=== PATIENT | female | born 1980 ===

== ENCOUNTER 2018-02-04 14:50 | Emergency (ER) | payer SELFPAY ==
[2018-02-04 14:50] VITALS: BMI 23.4
[2018-02-04 15:17] VITALS: BP 97/59; PULSE 89; RESP 18; TEMP 98.7; O2SAT 100
--- NOTE | 2018-02-04 15:24 | ED PDOC ---
HPI: General Adult Time Seen by Provider: 02/04/18 15:14 Chief Complaint (Nursing): Abnormal Labs Chief Complaint (Provider): Labs History Per: Patient Additional Complaint(s): Pt received a letter yesterday in the mail to return to ED for abnormal test results. Patient denies any symptoms at this time. Pt was given bactrim for UTI last week and Micro resulted and Bactrim was not listed. Pt reprots feeling improved, slight pain transiently. no fever or chills Past Medical History Reviewed: Nursing Documentation, Vital Signs Vital Signs: Last Vital Signs Temp 98.7 F 02/04/18 15:08 Pulse 89 02/04/18 15:08 Resp 18 02/04/18 15:08 BP 97/59 L 02/04/18 15:08 Pulse Ox 100 02/04/18 15:24 - Medical History PMH: No Chronic Diseases - Surgical History Surgical History: - Family History Family History: States: Unknown Family Hx - Living Arrangements Living Arrangements: With Family - Immunization History Hx Tetanus Toxoid Vaccination: No Hx Influenza Vaccination: No Hx Pneumococcal Vaccination: No - Home Medications Home Medications: Ambulatory Orders Medication Instructions Recorded Fluconazole [Diflucan] 150 mg PO DAILY #1 tab 04/13/17 Miconazole [Miconazole 7] 100 mg VG HS #7 sup 04/13/17 Phenazopyridine HCl [Pyridium] 100 mg PO TID #6 tablet 04/13/17 Ibuprofen [Motrin] 600 mg PO Q6 PRN #20 tab 01/15/18 Nitrofurantoin Macrocrystals 100 mg PO BID #14 cap 01/15/18 [Macrobid] Naproxen [Naprosyn] 500 mg PO Q12H #20 tab 01/26/18 Sulfamethoxazole/Trimethoprim 1 tab PO BID #20 tab 01/26/18 [Bactrim DS 800 mg-160 mg] Ciprofloxacin [Cipro] 500 mg PO BID #6 tab 02/04/18 - Allergies Allergies/Adverse Reactions: Allergies Allergy/AdvReac Type Severity Reaction Status Date / Time seasonal Allergy Mild RASH Uncoded 02/04/18 15:08 Review of Systems ROS Statement: Except As Marked, All Systems Reviewed And Found Negative Physical Exam - Reviewed Nursing Documentation Reviewed: Yes Vital Signs Reviewed: Yes - Physical Exam Appears: Positive for: Well, Non-toxic, No Acute Distress Head Exam: Positive for: ATRAUMATIC, NORMAL INSPECTION, NORMOCEPHALIC Skin: Positive for: Normal Color, Warm, DRY Eye Exam: Positive for: EOMI, Normal appearance, PERRL ENT: Positive for: Normal ENT Inspection Neck: Positive for: Normal, Painless ROM Cardiovascular/Chest: Positive for: Regular Rate, Rhythm Respiratory: Positive for: CNT, Normal Breath Sounds Gastrointestinal/Abdominal: Positive for: Normal Exam, Soft Back: Positive for: Normal Inspection Extremity: Positive for: Normal ROM Neurologic/Psych: Positive for: Alert, Oriented - ECG O2 Sat by Pulse Oximetry: 100 Medical Decision Making Medical Decision Making: Pt given RX for Cipro Disposition - Clinical Impression Clinical Impression: UTI (urinary tract infection) - Patient ED Disposition Is Patient to be Admitted: No - Disposition Disposition: Routine/Home Disposition Time: 15:36 Condition: STABLE Prescriptions: Ciprofloxacin [Cipro] 500 mg PO BID #6 tab Instructions: Urinary Tract Infection, Adult (DC) Forms: [employer] (Maltese)
== END 2018-02-04 15:52 | disposition home or self-care (01) ==
LOC: H.ER 14:50
DX: N39.0 Urinary tract infection, site not specified (principal)

== ENCOUNTER 2018-02-20 12:58 | Emergency (ER) | payer SELFPAY ==
[2018-02-20 12:59] VITALS: BMI 23.4
[2018-02-20 13:13] VITALS: PULSE 75
[2018-02-20] MEDS ORDERED: Piperacillin/Tazobact 3.375 GM in Sodium Chloride 0.9% 100 ML IVPB STA (13:31)
[2018-02-20 14:23] LABS: VENOUS BLOOD GAS BASE EXCESS 1.7 mmol/L (0.0-2.0); VENOUS BLOOD GAS PCO2 58 mmHg (40-60); VENOUS BLOOD GAS PO2 23 mm/Hg (30-55); VENOUS BLOOD PH 7.31 (7.32-7.43)
[2018-02-20 14:28] LABS: BASO % 0.6 % (0.0-2.0); EOS # 0.2 K/uL (0.0-0.7); EOS % 3.2 % (0.0-4.0); HEMOGLOBIN 12.1 g/dL (12.0-16.0); LYMPH # 2.7 K/uL (1.0-4.3); LYMPH % 41.5 % (20.0-40.0); MEAN CELL VOLUME 90.7 fl (81.0-99.0); MEAN CORPUSCULAR HEMOGLOBIN 30.8 pg (27.0-31.0); MEAN CORPUSCULAR HGB CONC 33.9 g/dL (33.0-37.0); MEAN PLATELET VOLUME 8.2 fl (7.2-11.7); MONO # 0.4 K/uL (0.0-0.8); MONO % 6.2 % (0.0-10.0); NEUT # 3.2 K/uL (1.8-7.0); NEUT % 48.5 % (50.0-75.0); NRBC % 0.1 % (0.0-0.0); RBC 3.93 Mil/uL (3.80-5.20); RED CELL DISTRIBUTION WIDTH 13.1 % (11.5-14.5); WHITE BLOOD COUNT 6.6 K/uL (4.8-10.8)
[2018-02-20 14:41] LABS: ALB/GLOB RATIO 1.2 (1.0-2.1); ALBUMIN 4.2 g/dL (3.5-5.0); ALT/SGPT 30 U/L (9-52); AST/SGOT 40 U/L (14-36); BLOOD UREA NITROGEN 14 mg/dl (7-17); CALCIUM 9.4 mg/dL (8.4-10.2); GFR NON-AFRICAN AMERICAN > 60
[2018-02-20] MEDS ORDERED: Piperacillin/Tazobact 3.375 gm Inj IVPB ONE (14:42)
[2018-02-20 14:44] LABS: SQUAMOUS EPITHIAL 1 /hpf (0-5); URINE BACTERIA RARE (<OCC); URINE BILIRUBIN NEGATIVE (NEGATIVE); URINE BLOOD MODERATE (NEGATIVE); URINE CLARITY CLEAR (Clear); URINE COLOR STRAW (YELLOW); URINE GLUCOSE (UA) NEG (Normal); URINE LEUKOCYTE ESTERASE NEG Leu/uL (Negative); URINE PROTEIN NEGATIVE (NEGATIVE); URINE UROBILINOGEN 0.2-1.0 mg/dL (0.2-1.0)
[2018-02-20] MEDS ORDERED: Sodium Chloride 0.9% 1,000 ML IV SCH (15:45)
--- NOTE | 2018-02-20 15:51 | ED PDOC ---
Addendum entered and electronically signed by German Maynard PA 02/22/18 10:57: Addendum Addendum: 02/22/18 10:55 As per urine culture no oral abx can be given to treat pt's UTI. Called but no answer. Voicemail left. 2nd attempt to be made. Original Note: HPI: Female Pain Time Seen by Provider: 02/20/18 13:12 Chief Complaint (Nursing): Female Genitourinary Chief Complaint (Provider): dysuria History Per: Patient (37 y/o female with ESBL positive uti here after completing augmentin x 7 days. Notes persistent dysuria after completion of antibiotics. Denies any fevers/chils.) Past Medical History Reviewed: Historical Data, Nursing Documentation, Vital Signs Vital Signs: Last Vital Signs Temp 98.7 F 02/20/18 13:08 Pulse 75 02/20/18 13:08 Resp 16 02/20/18 13:08 BP 108/64 02/20/18 13:08 Pulse Ox 99 02/20/18 13:08 - Surgical History Surgical History: - Family History Family History: States: Unknown Family Hx - Immunization History Hx Tetanus Toxoid Vaccination: No Hx Influenza Vaccination: No Hx Pneumococcal Vaccination: No - Home Medications Home Medications: Ambulatory Orders Medication Instructions Recorded Ascorbic Acid 500 mg PO DAILY #14 tablet 02/20/18 Cranberry 2 cap PO TID 02/20/18 Famotidine [Pepcid] 20 mg PO BID PRN #10 tab 02/20/18 Multivitamin/Iron/Folic Acid 1 tab PO DAILY 02/20/18 [Centrum Complete Multivit Tab] [place]-3 Fatty Acids [[place]-3] 1 cap PO DAILY 02/20/18 Phenazopyridine HCl [Pyridium] 200 mg PO BID PRN #6 tablet 02/20/18 Vitamin E [Vitamin E 400 Units Cap] 1 cap PO DAILY 02/20/18 - Allergies Allergies/Adverse Reactions: Allergies Allergy/AdvReac Type Severity Reaction Status Date / Time seasonal Allergy Mild RASH Uncoded 02/20/18 13:08 Review of Systems ROS Statement: Except As Marked, All Systems Reviewed And Found Negative Physical Exam - Reviewed Nursing Documentation Reviewed: Yes Vital Signs Reviewed: Yes - Physical Exam Appears: Positive for: Well, Non-toxic, No Acute Distress Head Exam: Positive for: ATRAUMATIC, NORMAL INSPECTION, NORMOCEPHALIC Skin: Positive for: Normal Color, Warm, DRY Eye Exam: Positive for: EOMI, Normal appearance, PERRL ENT: Positive for: Normal ENT Inspection Neck: Positive for: Normal, Painless ROM Cardiovascular/Chest: Positive for: Regular Rate, Rhythm Respiratory: Positive for: CNT, Normal Breath Sounds Gastrointestinal/Abdominal: Positive for: Normal Exam, Soft Back: Positive for: Normal Inspection Extremity: Positive for: Normal ROM Neurologic/Psych: Positive for: Alert, Oriented - Laboratory Results Result Diagrams: 02/20/18 14:20 02/20/18 14:20 Urine POC: Negative Urine dip results: Negative for: Leukocyte Esterase, Blood, Nitrate, Ketones, Glucose, Bilirubin, Protein - ECG O2 Sat by Pulse Oximetry: 99 - Progress ED Course And Treament: zosyn 3.375gm iv x 1 dose given initially d/w Dr. Escobar. After review of multiple visits/urine culture results and today's ua/bloodwork results, Dr Escobar feels patient does not warrant at this time. Recommends Vit C for dysuria and we will follow urine cx. ADvised to keep appointment 03/01/2018 for further evaluation of dysuria. Disposition - Clinical Impression Clinical Impression: Dysuria - Patient ED Disposition Is Patient to be Admitted: No - Disposition [facility] Disposition: Routine/Home Disposition Time: 15:51 Condition: FAIR Prescriptions: Ascorbic Acid 500 mg PO DAILY #14 tablet Famotidine [Pepcid] 20 mg PO BID PRN #10 tab PRN Reason: Pain, Moderate (4-7) Phenazopyridine HCl [Pyridium] 200 mg PO BID PRN #6 tablet PRN Reason: Urinary Discomt Instructions: Dysuria, Adult (DC) Forms: [facility] ED School/Work Excuse Print Language: [place]
[2018-02-20 17:53] VITALS: BP 118/90; RESP 20; TEMP 98.9; O2SAT 100
== END 2018-02-20 17:45 | disposition home or self-care (01) ==
LOC: H.ER 12:58
DX: R30.0 Dysuria (principal)
CPT/HCPCS: 80053; 81003; 82803; 85025; 87040; 87086; 87181; 87491; 87591; 96361; 96365; 99283; J2543; J7030